=== PATIENT | male | born 1960 | race Two or more races ===

== ENCOUNTER 2017-10-18 13:33 | Emergency (ER) | payer MEDICARE, MEDICAID ==
[~2017-10-18] VITALS: Ht 175.3 cm; Wt 81.6 kg
[2017-10-18] MEDS ORDERED: HYDROCODON-ACE1 EA13 ORAL (13:45)
[2017-10-18] MEDS ORDERED: BUPROPION XL300 M1 PO (13:45)
[2017-10-18] MEDS ORDERED: LANTUS SOL100 UNIT/1 SUBQ (13:45)
[2017-10-18] MEDS ORDERED: ZOLPIDEM TARTRA10 MG ORAL (13:45)
[2017-10-18] MEDS ORDERED: METFORMIN HCL500 M1 ORAL (13:45)
[2017-10-18] MEDS ORDERED: AMLODIPINE BESYL5 MG ORAL (13:45)
[2017-10-18] MEDS ORDERED: QUETIAPINE FUM300 MG ORAL (13:45)
[2017-10-18] MEDS ORDERED: HUMALOG100 UNIT/4 SUBQ (13:45)
[2017-10-18] MEDS ORDERED: VENTOLIN HFA18 GM INH (13:45)
[2017-10-18 13:54] VITALS: BP 157/92
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
[2017-10-18] MEDS ORDERED: MUPIROCIN22 GM TOPIC (14:38)
[2017-10-18] MEDS ORDERED: CEPHALEXIN500 MG ORAL (14:38)
[2017-10-18] MEDS ORDERED: TYLENOL EXTRA500 MG ORAL (14:38)
[2017-10-18 16:26] VITALS: BP 173/97
== END 2017-10-18 16:26 ==
LOC: EDBD 13:33 → EMR 14:00
DX: L72.8 Other follicular cysts of the skin and subcutaneous tissue (principal); J44.9 Chronic obstructive pulmonary disease, unspecified; Z86.19 Personal history of other infectious and parasitic diseases; I10 Essential (primary) hypertension; J45.909 Unspecified asthma, uncomplicated
CPT/HCPCS: 10060; 99284